=== PATIENT | female | born 1940 | race Hispanic/Latino ===

== ENCOUNTER 2020-03-18 14:03 | Emergency (ER) | payer OTHER, MEDICARE ==
[~2020-03-18 14:03] MED LIST: DULO30CA52 PO
[2020-03-18 14:37] LABS: BASOPHILS % (AUTO) 0.2 % (0.0-5.0); EOSINOPHILS % (AUTO) 0.4 % (0.0-8.0); HEMATOCRIT 36.8 % (36-48); LYMPHOCYTES % (AUTO) 14.3 % (21.0-51.0); MEAN CORPUSCULAR HEMOGLOBIN 30.8 pg (27.0-33.0); MEAN CORPUSCULAR VOLUME 90.6 fL (79-99); MONOCYTES % (AUTO) 7.8 % (3.0-13.0); NEUTROPHILS % (AUTO) 76.8 % (40.0-77.0); PLATELET COUNT (AUTO) 152 K/uL (130-400); RED BLOOD CELL COUNT(AUTO) 4.06 MIL/uL (4.00-5.50); RED CELL DISTRIBUTION WIDTH 13.5 % (11.0-15.5); WHITE BLOOD COUNT (AUTO) 5.7 K/uL (4.8-10.8)
[2020-03-18 14:51] LABS: ALBUMIN 3.5 g/dL (3.5-5.0); BILIRUBIN,TOTAL 0.4 mg/dL (0.2-1.0)
== END 2020-03-18 15:36 | disposition home or self-care (01) ==
LOC: EDH 14:03
DX: U07.1 COVID-19 (principal); Z98.890 Other specified postprocedural states
CPT/HCPCS: 36415; 71045; 80053; 85025; 87040 ×2; 99284; U0003

== ENCOUNTER 2020-03-23 14:20 | Inpatient (IN) | payer OTHER, MEDICARE ==
[~2020-03-23] VITALS: Ht 160 cm; Wt 72.5 kg
[2020-03-23 15:49] LABS: APPEARANCE,URINE Cloudy (CLEAR); BILIRUBIN,URINE Small (NEGATIVE); COLOR,URINE Dark Yellow (YELLOW); GLUCOSE, URINE (UA) Negative (NEGATIVE); KETONES,URINE Trace mg/dL (NEGATIVE); LEUKOCYTE ESTERASE ,URINE Small (NEGATIVE); NITRATE,URINE Negative (NEGATIVE); OCCULT BLOOD,URINE Negative (NEGATIVE); PH,URINE 5.5 (5.0-8.0); PROTEIN,URINE POS 1+ mg/dL (NEGATIVE)
[2020-03-23 16:01] LABS: BASOPHILS % (AUTO) 0.2 % (0.0-5.0); EOSINOPHILS % (AUTO) 0.1 % (0.0-8.0); HEMATOCRIT 36.7 % (36-48); LYMPHOCYTES % (AUTO) 12.1 % (21.0-51.0); MEAN CORPUSCULAR HEMOGLOBIN 30.6 pg (27.0-33.0); MEAN CORPUSCULAR HGB CONC 34.6 g/dL (32.0-36.0); MEAN CORPUSCULAR VOLUME 88.4 fL (79-99); MONOCYTES % (AUTO) 6.2 % (3.0-13.0); NEUTROPHILS % (AUTO) 80.3 % (40.0-77.0); PLATELET COUNT (AUTO) 150 K/uL (130-400); RED BLOOD CELL COUNT(AUTO) 4.15 MIL/uL (4.00-5.50); RED CELL DISTRIBUTION WIDTH 13.6 % (11.0-15.5); WHITE BLOOD COUNT (AUTO) 9.1 K/uL (4.8-10.8)
[2020-03-23 16:08] LABS: CREATININE 1.1 mg/dL (0.5-1.5); POTASSIUM 3.4 mmol/L (3.5-5.1)
[2020-03-23] MEDS ORDERED: CEFTRIAXONE SODIUM 1 GM ONE (16:10)
[2020-03-23 16:11] LABS: INR 1.08 (0.85-1.15); PARTIAL THROMBOPLASTIN TIME 30.7 SEC (26.3-35.5); PROTHROMBIN TIME 11.6 SEC (9.6-11.6)
[2020-03-23 16:13] LABS: ALBUMIN 3.1 g/dL (3.5-5.0); BILIRUBIN,TOTAL 0.5 mg/dL (0.2-1.0); TOTAL PROTEIN, SERUM 8.1 g/dL (6.0-8.3)
[2020-03-23 16:32] LABS: RBC,URINE 0-1 /HPF (0-1)
[2020-03-23 16:33] LABS: BACTERIA,URINE Few /HPF (None Seen); MUCUS,URINE Rare LPF (None Seen); SQUAMOUS EPITHELIAL CELL,UR Few /HPF (0-2); TRANSITIONAL EPI CELLS,URINE Few /HPF (None Seen)
[2020-03-23] MEDS ORDERED: ERGOCALCIFEROL (VITAMIN D2) 50,000 UNIT CAPSULE PO ONE (19:00)
[2020-03-23] MEDS ORDERED: POTASSIUM CHLORIDE 10% ELIXIR 20 MEQ/15 ML UDCUP PO PRN (19:00)
[2020-03-23] MEDS ORDERED: HYDRALAZINE HCL 20 MG/ML VIAL IV PRN (19:00)
[2020-03-23] MEDS ORDERED: FUROSEMIDE 10 MG/ML 2ML VIAL IV SCH (19:00)
[2020-03-23] MEDS ORDERED: ACETAMINOPHEN 325 MG TAB PO PRN ×2 (19:00)
[2020-03-23] MEDS ORDERED: DOXYCYCLINE 100MG+NS 250ML 250 ML IV SCH (19:00)
[2020-03-23] MEDS ORDERED: ACETAMINOPHEN-CODEINE 300/30MG TAB PO PRN ×2 (19:00)
[2020-03-23] MEDS ORDERED: LIDOCAINE HCL-MPF 1% 2ML VIAL IV PRN (19:00)
[2020-03-23] MEDS ORDERED: ONDANSETRON HCL 4 MG/2 ML VIAL IV PRN (19:00)
[2020-03-23] MEDS ORDERED: POTASSIUM CHLORIDE 20MEQ/100ML 100 ML IV PRN (19:00)
[2020-03-23] MEDS ORDERED: IOHEXOL 350 MG/ML 100ML INFUS..BTL IV ONE (19:36)
[2020-03-23] MEDS ORDERED: ENOXAPARIN SODIUM 40 MG/0.4 ML SYRINGE SQ SCH ×2 (21:00)
[2020-03-23] MEDS ORDERED: ENOXAPARIN SODIUM 40 MG/0.4 ML SYRINGE SQ ONE (21:22)
[2020-03-23] MEDS ORDERED: FAMOTIDINE 20MG TAB 20 MG TAB ONE (21:22)
[2020-03-23] MEDS ORDERED: METHYLPREDNISOLONE SOD SUCC 40MG/ML 1ML ONE (21:23)
[2020-03-23] MEDS ORDERED: BENZONATATE 100 MG CAPSULE PO ONE (21:44)
[2020-03-23] MEDS ORDERED: FUROSEMIDE 10 MG/ML 2ML VIAL ONE (21:44)
[2020-03-23] MEDS ORDERED: ERGOCALCIFEROL (VITAMIN D2) 50,000 UNIT CAPSULE ONE (21:45)
[2020-03-23] MEDS ORDERED: DOXYCYCLINE 100MG+NS 250ML 250 ML IV ONE (21:46)
[2020-03-24] MEDS: IPRATROPIUM/ALBUTEROL SULFATE 3 ML SOLUTION IH SCH
[2020-03-24] MEDS ORDERED: ENOXAPARIN SODIUM 40 MG/0.4 ML SYRINGE SQ SCH (09:00)
[2020-03-24] MEDS ORDERED: METHYLPREDNISOLONE SOD SUCC 40MG/ML 1ML ONE (09:15)
[2020-03-24] MEDS ORDERED: FAMOTIDINE 20MG TAB 20 MG TAB ONE (09:16)
[2020-03-24] MEDS ORDERED: ASCORBIC ACID 500 MG TAB ONE (09:16)
[2020-03-24] MEDS ORDERED: DOXYCYCLINE HYCLATE 100 MG TABLET PO ONE (09:16)
[2020-03-24] MEDS ORDERED: ENOXAPARIN SODIUM 40 MG/0.4 ML SYRINGE SQ ONE (09:17)
[2020-03-24] MEDS ORDERED: BENZONATATE 100 MG CAPSULE PO ONE ×2 (09:17→13:05)
[2020-03-24] MEDS ORDERED: ZINC SULFATE 220 CAPSULE ONE ×2 (09:22→13:05)
--- NOTE | 2020-03-24 14:20 | NUR ---
DR AGUIRRE BAND TUMBLER NOTIFY ABOUT CONSULT. HE WILL EVALUATE PT.
--- NOTE | 2020-03-24 16:59 | NUR ---
cm note spoke to pt's son jad and daughter in law bushra . pt lives alone, independent with ambulation and has provider 2hrs daily. son is provider. states uses cpap at hs, dc plan is back home at time of dc. . states if pt is still weak at dc. pt will be going to his home at time of dc. until she is stable. states no dc needs. Addendum: 03/24/20 at 1703 by CLEMENT YANES CM Amended: Links added.
[2020-03-25] MEDS ORDERED: MORPHINE SULFATE 2 MG/ML 1ML SYG IV PRN
[2020-03-25] MEDS ORDERED: DEXTROSE 50%-WATER 50 ML DISP.SYRIN IV PRN
[2020-03-25] MEDS ORDERED: POTASSIUM CHLORIDE 20 MEQ ERTAB PO PRN
[2020-03-25] MEDS ORDERED: NITROGLYCERIN 0.4 MG SL TAB SL PRN
[2020-03-25] MEDS ORDERED: DiphenhydrAMINE HCL 50 MG/ML VIAL IV PRN
[2020-03-25] MEDS ORDERED: POTASSIUM CHLORIDE 20MEQ/100ML 100 ML IV PRN
[2020-03-25] MEDS ORDERED: GUAIFENESIN-DM 200/20 MG 10 ML PO PRN
[2020-03-25] MEDS ORDERED: DIPHENHYDRAMINE HCL 25 MG CAPSULE PO PRN
[2020-03-25] MEDS ORDERED: MAGNESIUM 2GM PREMIX 50ML 50 ML IV PRN
[2020-03-25] MEDS ORDERED: MAG HYDROX/AL HYDROX/SIMETH ES 30 ML SUSP UDCUP PO PRN
[2020-03-25] MEDS ORDERED: GLUCAGON 1MG KIT 1 MG ML IM PRN
[2020-03-25] MEDS ORDERED: POTASSIUM CHLORIDE 10% ELIXIR 20 MEQ/15 ML UDCUP PO PRN
[2020-03-25] MEDS ORDERED: LACTULOSE 20 GM/30 ML UDCUP PO PRN
[2020-03-25] MEDS ORDERED: LIDOCAINE HCL-MPF 1% 2ML VIAL IV PRN
[2020-03-25] MEDS ORDERED: ACETAMINOPHEN 325 MG TAB PO PRN
[2020-03-25] MEDS ORDERED: ZOLPIDEM TARTRATE 5 MG TAB PO PRN
[2020-03-25] MEDS ORDERED: METHYLPREDNISOLONE SOD SUCC 40MG/ML 1ML ONE ×3 (00:44→21:01)
[2020-03-25] MEDS ORDERED: DOXYCYCLINE HYCLATE 100 MG TABLET PO ONE ×3 (00:44→21:02)
[2020-03-25] MEDS ORDERED: BENZONATATE 100 MG CAPSULE PO ONE ×4 (00:45→21:02)
[2020-03-25] MEDS ORDERED: ENOXAPARIN SODIUM 40 MG/0.4 ML SYRINGE SQ ONE ×2 (00:45→09:58)
[2020-03-25 07:24] LABS: HEMOGLOBIN A1C 5.9 % (4.0-6.0)
[2020-03-25 07:42] LABS: ABG BASE EXCESS 1.9 mmol/L (-2.0-3.0); ABG OXYGEN SATURATION 93.7 % (95.0-99.0); ABG PCO2 35 mmHg (32-45)
[2020-03-25 08:12] LABS: ALANINE AMINOTRANSFERASE 24 U/L (12-78); ALBUMIN 2.7 g/dL (3.5-5.0); ASPARTATE AMINOTRANSFERASE 34 U/L (10-37); BILIRUBIN,TOTAL 0.4 mg/dL (0.2-1.0); CARBON DIOXIDE 27 mmol/L (21-32); CHLORIDE 103 mmol/L (101-111); CREATININE 0.7 mg/dL (0.5-1.5); GLOMERULAR FILTR. RATE CALC 86 mL/min (>60); GLUCOSE,RANDOM 165 mg/dL (70-105); LACTATE DEHYDROGENASE 233 U/L (81-234); LIPASE 163 U/L (114-286); POTASSIUM 3.5 mmol/L (3.5-5.1); SODIUM SERUM 138 mmol/L (136-145); THYROID STIMULATING HORMONE 0.17 uIU/mL (0.36-3.74); TOTAL PROTEIN, SERUM 7.1 g/dL (6.0-8.3); UREA NITROGEN, BLOOD 22 mg/dL (7-18)
[2020-03-25] MEDS ORDERED: FAMOTIDINE 20MG TAB 20 MG TAB ONE (09:57)
[2020-03-25] MEDS ORDERED: ASCORBIC ACID 500 MG TAB ONE (09:57)
[2020-03-25] MEDS ORDERED: ZINC SULFATE 220 CAPSULE ONE (09:58)
[2020-03-25] MEDS: ZINC SULFATE 220 CAPSULE PO SCH (12:00)
[2020-03-25] MEDS ORDERED: PHARMACY COMMUNICATION MISC SCH (16:00)
[2020-03-25] MEDS ORDERED: FUROSEMIDE 10 MG/ML 2ML VIAL ONE (17:02)
[2020-03-25] MEDS ORDERED: DiphenhydrAMINE HCL 25 MG/10 ML ELIXIR UDCUP ONE (21:52)
[2020-03-26] MEDS: FUROSEMIDE 10 MG/ML 2ML VIAL IV SCH ×2 (04:00→17:17)
[2020-03-26] MEDS ORDERED: FUROSEMIDE 10 MG/ML 2ML VIAL ONE (05:31)
[2020-03-26] MEDS: IPRATROPIUM/ALBUTEROL SULFATE 3 ML SOLUTION IH SCH (06:00)
[2020-03-26 06:59] LABS: HEMATOCRIT 34.7 % (36-48); MEAN CORPUSCULAR HEMOGLOBIN 30.2 pg (27.0-33.0); MEAN CORPUSCULAR VOLUME 88.7 fL (79-99); PLATELET COUNT (AUTO) 174 K/uL (130-400); RED BLOOD CELL COUNT(AUTO) 3.91 MIL/uL (4.00-5.50); RED CELL DISTRIBUTION WIDTH 13.3 % (11.0-15.5); WHITE BLOOD COUNT (AUTO) 14.8 K/uL (4.8-10.8)
[2020-03-26 07:18] LABS: BILIRUBIN,TOTAL 0.5 mg/dL (0.2-1.0); CRP QUANTITATIVE 25.6 mg/L (0.00-9.0); MAGNESIUM 2.5 mg/dL (1.80-2.40); TOTAL PROTEIN, SERUM 7.6 g/dL (6.0-8.3)
[2020-03-26] MEDS: INSULIN HUMULIN R 100 UNIT/ML 3ML SQ SCH ×4 (07:30→20:20)
[2020-03-26] MEDS: PHARMACY COMMUNICATION MISC SCH ×3 (07:45→19:45)
[2020-03-26] MEDS ORDERED: METHYLPREDNISOLONE SOD SUCC 40MG/ML 1ML ONE (07:56)
[2020-03-26] MEDS ORDERED: DOXYCYCLINE HYCLATE 100 MG TABLET PO ONE (07:57)
[2020-03-26] MEDS ORDERED: POTASSIUM CHLORIDE 20 MEQ ERTAB PO ONE (07:57)
[2020-03-26] MEDS ORDERED: ASCORBIC ACID 500 MG TAB ONE (07:57)
[2020-03-26] MEDS ORDERED: FAMOTIDINE 20MG TAB 20 MG TAB ONE (07:57)
[2020-03-26] MEDS ORDERED: BENZONATATE 100 MG CAPSULE PO ONE (07:58)
[2020-03-26] MEDS ORDERED: ENOXAPARIN SODIUM 40 MG/0.4 ML SYRINGE SQ ONE (07:58)
[2020-03-26 08:35] LABS: LYMPHOCYTES % (MANUAL) 5 % (22-44); MAN.DIFF COMMENT-IMPRESSION MANUAL DIFFERENTIAL; PLATELET MORPHOLOGY COMMENT ADEQUATE; SEGMENTED NEUTROPHILS % 95 % (40-70)
[2020-03-26] MEDS: ENOXAPARIN SODIUM 40 MG/0.4 ML SYRINGE SQ SCH ×2 (09:00→20:22)
[2020-03-26] MEDS: FAMOTIDINE 20MG TAB 20 MG TAB PO SCH (09:00)
[2020-03-26] MEDS: BENZONATATE 100 MG CAPSULE PO SCH ×3 (09:00→20:22)
[2020-03-26] MEDS: METHYLPREDNISOLONE SOD SUCC 40MG/ML 1ML IVP SCH ×2 (09:00→20:21)
[2020-03-26] MEDS: ASCORBIC ACID 500 MG TAB PO SCH (09:00)
[2020-03-26] MEDS: DOXYCYCLINE HYCLATE 100 MG TABLET PO SCH ×2 (09:00→20:21)
[2020-03-26 09:36] VITALS: BP 119/48
[2020-03-26 12:00] VITALS: BP 115/55
[2020-03-26] MEDS: ZINC SULFATE 220 CAPSULE PO SCH (13:57)
[2020-03-26] MEDS: POTASSIUM CHLORIDE 20 MEQ ERTAB PO PRN ×3 (13:58→17:40)
[2020-03-26 17:13] VITALS: BP 147/69
[2020-03-26 19:30] VITALS: BP 99/61
[2020-03-26] MEDS ORDERED: ALBUTEROL INHALER 90MCG/INH IH SCH (20:30)
[2020-03-26] MEDS: ALBUTEROL INHALER 90MCG/INH IH SCH (21:24)
[2020-03-26] MEDS: REMDESIVIR (EUA) 520 200 MG in SODIUM CHLORIDE 0.9% 250 ML IV ONE ×2 (21:25→21:57)
--- NOTE | 2020-03-26 21:57 | NUR ---
REFUSED Pt refused Remdesevir,explained to her risks,benefits but she said she's afraid and does not want to take the risk,Pharamkayla and Monae Mccoy Physiotherapy Assistant notified.Pt signed refusal form.
--- NOTE | 2020-03-26 23:12 | NUR ---
ANXIETY Pt is anxious,she's scared about the medication Remdesevir.She also voiced that her son is in the emergency room.
[2020-03-26 23:47] VITALS: BP 108/49
[2020-03-27] MEDS: PHARMACY COMMUNICATION MISC SCH ×2 (01:45→07:45)
--- NOTE | 2020-03-27 02:00 | NUR ---
CALM Pt calm,resting in bed,eyes closed.Respirations even and unlabored.
[2020-03-27] MEDS: ALBUTEROL INHALER 90MCG/INH IH SCH ×4 (02:58→20:50)
[2020-03-27 04:00] VITALS: BP 97/58
[2020-03-27] MEDS: FUROSEMIDE 10 MG/ML 2ML VIAL IV SCH ×2 (04:28→17:30)
[2020-03-27] MEDS: INSULIN HUMULIN R 100 UNIT/ML 3ML SQ SCH ×4 (06:05→20:36)
[2020-03-27 07:45] LABS: BASOPHILS % (AUTO) 0.2 % (0.0-5.0); HEMATOCRIT 35.7 % (36-48); LYMPHOCYTES % (AUTO) 5.7 % (21.0-51.0); MEAN CORPUSCULAR HGB CONC 33.6 g/dL (32.0-36.0); MEAN CORPUSCULAR VOLUME 89.3 fL (79-99); MONOCYTES % (AUTO) 4.2 % (3.0-13.0); NEUTROPHILS % (AUTO) 88.3 % (40.0-77.0); PLATELET COUNT (AUTO) 250 K/uL (130-400); RED CELL DISTRIBUTION WIDTH 13.2 % (11.0-15.5); WHITE BLOOD COUNT (AUTO) 13.6 K/uL (4.8-10.8)
[2020-03-27 08:00] LABS: CRP QUANTITATIVE 20.1 mg/L (0.00-9.0)
[2020-03-27 09:07] VITALS: BP 109/74
[2020-03-27] MEDS: METHYLPREDNISOLONE SOD SUCC 40MG/ML 1ML IVP SCH ×2 (10:20→20:33)
[2020-03-27] MEDS: ASCORBIC ACID 500 MG TAB PO SCH (10:20)
[2020-03-27] MEDS: FAMOTIDINE 20MG TAB 20 MG TAB PO SCH (10:20)
[2020-03-27] MEDS: BENZONATATE 100 MG CAPSULE PO SCH ×3 (10:20→20:32)
[2020-03-27] MEDS: DOXYCYCLINE HYCLATE 100 MG TABLET PO SCH ×2 (10:20→20:33)
[2020-03-27] MEDS: ENOXAPARIN SODIUM 40 MG/0.4 ML SYRINGE SQ SCH ×2 (10:22→20:34)
[2020-03-27 12:02] VITALS: BP 115/55
[2020-03-27] MEDS ORDERED: COMPOUND IV REFRIGERATED 1 EACH IVSOLN MISC PRN (12:15)
[2020-03-27] MEDS: ZINC SULFATE 220 CAPSULE PO SCH (13:39)
--- NOTE | 2020-03-27 15:00 | NUR ---
PT SHOWERED, TOLERATED WELL. NO COMPLAINTS OF PAIN OR SOB. WILL CONTINUE TO MONITOR.
[2020-03-27 16:39] VITALS: BP 118/61
[2020-03-27 20:00] VITALS: BP 106/68
[2020-03-27] MEDS ORDERED: REMDESIVIR (EUA) 520 100 MG in SODIUM CHLORIDE 0.9% 250 ML IV SCH (20:00)
[2020-03-28] VITALS: BP 95/51
[2020-03-28] MEDS: ALBUTEROL INHALER 90MCG/INH IH SCH ×4 (02:53→20:29)
[2020-03-28] MEDS: FUROSEMIDE 10 MG/ML 2ML VIAL IV SCH ×2 (04:00→17:50)
[2020-03-28] MEDS: INSULIN HUMULIN R 100 UNIT/ML 3ML SQ SCH ×4 (05:55→20:10)
[2020-03-28 06:41] LABS: HEMATOCRIT 37.2 % (36-48); MEAN CORPUSCULAR HEMOGLOBIN 30.2 pg (27.0-33.0); MEAN CORPUSCULAR HGB CONC 33.3 g/dL (32.0-36.0); MEAN CORPUSCULAR VOLUME 90.5 fL (79-99); PLATELET COUNT (AUTO) 269 K/uL (130-400); RED BLOOD CELL COUNT(AUTO) 4.11 MIL/uL (4.00-5.50); RED CELL DISTRIBUTION WIDTH 13.1 % (11.0-15.5); WHITE BLOOD COUNT (AUTO) 13.3 K/uL (4.8-10.8)
[2020-03-28 07:40] LABS: ALBUMIN 3.1 g/dL (3.5-5.0); BILIRUBIN,TOTAL 0.5 mg/dL (0.2-1.0); CREATININE 1.2 mg/dL (0.5-1.5); MAGNESIUM 2.6 mg/dL (1.80-2.40); POTASSIUM 3.3 mmol/L (3.5-5.1); TOTAL PROTEIN, SERUM 7.8 g/dL (6.0-8.3)
[2020-03-28 08:16] LABS: LYMPHOCYTES % (MANUAL) 8 % (22-44); MAN.DIFF COMMENT-IMPRESSION MANUAL DIFFERENTIAL; MONOCYTES % (MANUAL) 5 % (2-9); PLATELET MORPHOLOGY COMMENT ADEQUATE; SEGMENTED NEUTROPHILS % 87 % (40-70)
[2020-03-28 08:36] VITALS: BP 110/62
[2020-03-28] MEDS: BENZONATATE 100 MG CAPSULE PO SCH ×3 (10:14→20:09)
[2020-03-28] MEDS: ASCORBIC ACID 500 MG TAB PO SCH (10:14)
[2020-03-28] MEDS: DOXYCYCLINE HYCLATE 100 MG TABLET PO SCH ×2 (10:14→20:09)
[2020-03-28] MEDS: FAMOTIDINE 20MG TAB 20 MG TAB PO SCH (10:15)
[2020-03-28] MEDS: METHYLPREDNISOLONE SOD SUCC 40MG/ML 1ML IVP SCH ×2 (10:15→20:09)
[2020-03-28] MEDS: ENOXAPARIN SODIUM 40 MG/0.4 ML SYRINGE SQ SCH ×2 (10:16→20:09)
[2020-03-28 11:17] VITALS: BP 115/64
[2020-03-28] MEDS: ZINC SULFATE 220 CAPSULE PO SCH (13:55)
--- NOTE | 2020-03-28 16:30 | NUR ---
ORDERS TO WEAN PT OFF O2. RT NOTIFIED, SPOKE WITH PEDRO LUIS. PT ON 4L NASAL CANULA SAT 94%. NO COMPLAINTS OF SOB. PT STATES FEELING GOOD. WILL CONTINUE TO MONITOR.
[2020-03-28 17:44] VITALS: BP 120/63
[2020-03-28 20:25] VITALS: BP 118/73
[2020-03-29 00:02] VITALS: BP 108/58
[2020-03-29] MEDS: FUROSEMIDE 10 MG/ML 2ML VIAL IV SCH ×2 (04:00→18:04)
[2020-03-29] MEDS: ALBUTEROL INHALER 90MCG/INH IH SCH ×3 (04:21→18:04)
[2020-03-29 04:30] VITALS: BP 110/67
[2020-03-29 04:51] LABS: ABG BASE EXCESS 5.5 mmol/L (-2.0-3.0); ABG HCO3 29.1 mmol/L (21.0-28.0); ABG OXYGEN SATURATION 93.2 % (95.0-99.0); ABG PCO2 39 mmHg (32-45)
[2020-03-29] MEDS: INSULIN HUMULIN R 100 UNIT/ML 3ML SQ SCH ×3 (06:06→18:05)
[2020-03-29 06:59] LABS: BASOPHILS % (AUTO) 0.4 % (0.0-5.0); HEMATOCRIT 39.3 % (36-48); LYMPHOCYTES % (AUTO) 7.4 % (21.0-51.0); MEAN CORPUSCULAR HEMOGLOBIN 30.2 pg (27.0-33.0); MEAN CORPUSCULAR HGB CONC 33.3 g/dL (32.0-36.0); MEAN CORPUSCULAR VOLUME 90.6 fL (79-99); NEUTROPHILS % (AUTO) 81.8 % (40.0-77.0); PLATELET COUNT (AUTO) 315 K/uL (130-400); RED BLOOD CELL COUNT(AUTO) 4.34 MIL/uL (4.00-5.50); WHITE BLOOD COUNT (AUTO) 13.3 K/uL (4.8-10.8)
[2020-03-29 08:37] VITALS: BP 99/61
[2020-03-29] MEDS: FAMOTIDINE 20MG TAB 20 MG TAB PO SCH (09:38)
[2020-03-29] MEDS: BENZONATATE 100 MG CAPSULE PO SCH ×2 (09:38→18:03)
[2020-03-29] MEDS: ASCORBIC ACID 500 MG TAB PO SCH (09:38)
[2020-03-29] MEDS: METHYLPREDNISOLONE SOD SUCC 40MG/ML 1ML IVP SCH (09:38)
[2020-03-29] MEDS: DOXYCYCLINE HYCLATE 100 MG TABLET PO SCH (09:38)
[2020-03-29] MEDS: ENOXAPARIN SODIUM 40 MG/0.4 ML SYRINGE SQ SCH (09:45)
[2020-03-29 11:20] VITALS: BP 113/65
[2020-03-29 17:00] VITALS: BP 119/68
--- NOTE | 2020-03-29 17:00 | NUR ---
CM note spoke to pt choice letter obtained for home o2. and updated on md orders for dc when O2 arranged, explained process of oxygen tank and concentrator loaner from the hospital. and also informed of referral made to [facility] for polo yarbrough. pt verbalizes understanding. also spoke on phone to son, and in agreement. Brandon Ruiz. updated warehouse operator guille to provide concentrator for pt, and also called RT to provide portable o2 tank and provide instructions. primary nurse Fabian aware of above.
[2020-03-29] MEDS: ZINC SULFATE 220 CAPSULE PO SCH (18:03)
--- NOTE | 2020-03-29 18:41 | NUR ---
PT PENDING O2 CONCENTRATOR HOUSE AWARE RT TO TEACH PATIENT PRIOR TO D/C HOME AND TO EDUCATE FAMILY AT ELEVATOR PRIOR TO D/C HOME.
--- NOTE | 2020-03-29 21:08 | NUR ---
RT IN TO TEACH PATIENT AND SON HOW TO USE O2 CONCENTRATOR AT THIS TIME. PATIENT TO BE D/C'D AFTER INSTRUCTION.
== END 2020-03-29 21:15 | disposition home or self-care (01) | DRG 177 ==
LOC: EDH 14:20 → EDHIP 18:55 → 3AH 03-26 08:50
PROVIDERS: ADMIT Internal Medicine; ATTEND Internal Medicine
PROC: 30233K1 Transfusion of Nonautologous Frozen Plasma into Peripheral Vein, Percutaneous Approach (ICD-10-PCS; principal; 2020-03-23)
DX: U07.1 COVID-19 (principal); J96.01 Acute respiratory failure with hypoxia; J44.1 Chronic obstructive pulmonary disease with (acute) exacerbation; G47.33 Obstructive sleep apnea (adult) (pediatric); F32.9 Major depressive disorder, single episode, unspecified; Z90.49 Acquired absence of other specified parts of digestive tract
CPT/HCPCS: 36415; 36600; 71045; 71275; 80053; 81001; 82550; 82728; 82803; 82948; 83036; 83615; 83690; 83735; 83880; 84132; 84145; 84439; 84443; 84480; 84484; 85025; 85378; 85610; 85651; 85730; 86140; 86850; 86900; 86901; 86927; 93005; 94664; 94760; G0378; J0696; J1650; J1815; J1940; J2920; J3490; J7050; Q9967

== ENCOUNTER → 2020-09-11 | Outpatient (CLI) | payer MEDICARE | END | disposition home or self-care (01) | LOC: RAH 11:08 | PROVIDERS: ATTEND Family Medicine | DX: R91.8 Other nonspecific abnormal finding of lung field (principal); J84.10 Pulmonary fibrosis, unspecified; M51.35 Other intervertebral disc degeneration, thoracolumbar region; Z86.19 Personal history of other infectious and parasitic diseases | CPT/HCPCS: 71046 ==

== ENCOUNTER → 2022-05-20 | Outpatient (CLI) | payer MEDICARE ==
[2022-05-20 13:22] LABS: CREATINE KINASE, TOTAL 67 U/L (21-232); LACTATE DEHYDROGENASE 179 U/L (81-234)
[2022-05-20 13:25] LABS: CRP QUANTITATIVE < 2.00 mg/L (0.00-9.0)
[2022-05-25 06:10] LABS: ALLERGEN D.FARINAE(MITE) <0.10 kU/L (Class 0)
== END | disposition home or self-care (01) ==
LOC: LAB 11:02
PROVIDERS: ATTEND Internal Medicine Critical Care Medicine
DX: J84.10 Pulmonary fibrosis, unspecified (principal); J30.9 Allergic rhinitis, unspecified; R06.02 Shortness of breath; R09.02 Hypoxemia; G47.33 Obstructive sleep apnea (adult) (pediatric); G47.61 Periodic limb movement disorder; G47.30 Sleep apnea, unspecified; Z86.16 Personal history of COVID-19; Z86.19 Personal history of other infectious and parasitic diseases
CPT/HCPCS: 36415; 82085; 82164; 82550; 82785; 83516; 83615; 85651; 86003; 86005; 86038; 86140; 86147; 86200; 86215; 86235; 86255; 86431

== ENCOUNTER → 2024-10-03 | Outpatient (CLI) | payer MEDICARE ==
--- NOTE | 2024-10-03 14:50 | HMCIMG ---
CT CHEST HIGH RESOLUTION (WO) REASON: Chronic obstructive pulmonary disease, unspecified COMPARISON: 03/23/2020 TECHNIQUE: Routine CT chest images were performed. Additional high-resolution 1 mm sections were obtained at intervals throughout both lungs in inspiration and expiration. FINDINGS: There are diffusely increased interstitial markings in both lungs consistent with pulmonary fibrosis. These appear moderate in degree. There is some minimal peripheral honeycombing. There are no large blebs or bulla and there is no bronchiectasis. There are no acute appearing focal infiltrates. There are no focal masses. Heart size is normal with no vascular congestion. There is no hilar or mediastinal lymphadenopathy. Chest wall structures appear normal as do visualized upper abdominal structures. IMPRESSION: 1. Diffuse moderate degree of pulmonary fibrosis. 2. No superimposed process identified.
== END | disposition home or self-care (01) ==
LOC: RAH 13:40
PROVIDERS: ATTEND Internal Medicine Critical Care Medicine
DX: J84.10 Pulmonary fibrosis, unspecified (principal); J44.9 Chronic obstructive pulmonary disease, unspecified; J84.9 Interstitial pulmonary disease, unspecified
CPT/HCPCS: 71250

== ENCOUNTER 2024-11-14 19:59 | Inpatient (IN) | payer MEDICARE ==
[~2024-11-14] VITALS: Ht 154.9 cm; Wt 74.4 kg
--- NOTE | 2024-11-14 20:07 | ERN ---
ED Note History of Present Illness Stated Complaint: SOB Chief Complaint: Shortness of Breath Time Seen by MD: 20:02 Dictation: This is an 83-year-old female who presented to the emergency room with complaints of shortness of breath. She started experiencing worsening shortness of breath since Wednesday. She also reports cough and chest congestion and she is expectorating mucoid sputum but denied any hemoptysis. She denied any fevers chills or rigors however she did have a low-grade temp of 99 in the ER she was also noted to be hypoxic at 91% on room air. Stated that she has been sleeping all day and all night and has been extremely tired. She normally wears a CPAP machine for sleep apnea and she could not wear for the past few days. She indicated that the lethargy and somnolence has been there even before. Temperature 99 pulse 75 respirations 20 blood pressure 150/73 with a pulse oximetry of 91% on room air Past history significant for COPD details on PFTs unknown, obstructive sleep apnea syndrome, history of COVID-19 in March 25, 2020-with a extensive respiratory failure and lung injury Allergies: Coded Allergies: No Known Drug Allergies (Unverified Allergy, Unknown, 01/02/16) Home Meds Reported Medications Duloxetine HCl (Duloxetine HCl) 30 Mg Capsule.dr, 30 MG PO HS, CAP 01/02/16 Past Medical History Additional Past Medical Hx: COVID in 2019 with respiratory failure Family History: Negative Social History: Negative History: Not Applicable RN Note Reviewed/Agreed w/PFSH: Yes Review of System Dictation Constitutional: Negative for fever,chills, and weight loss Eyes: Negative for injury, pain,redness, and discharge ENT: Negative for injury,pain or swelling Cardiovascular: Negative for chest pain, palpitations, and edema Respiratory: Positive for shortness of breath, cough, and wheezing, Abdomen/GI: Negative for abdominal pain, nausea, vomiting, diarrhea, and constipation Back: Negative for injury and pain : Negative for injury, bleeding and discharge MS/Extremity: Negative for injury and deformity Skin: Negative for rash, and discoloration Neuro: Negative for headache, weakness, numbness, tingling, and seizure Psych: Negative for suicide ideation, homicidal ideation, and hallucinations Initial Vital Sign VS Vital Signs Date Time Temp Pulse Resp B/P (MAP) Pulse Ox O2 Delivery O2 Flow Rate FiO2 3/11/25 20:07 99.0 75 20 150/73 92 Room Air 0 11/14/24 20:27 21 Physical Exam Dictation General: awake, alert, NAD Head/Face: Normocephalic, atraumatic Eyes: PERRL, EOMI, vision at baseline ENT: oral cavity clear, TMs clear, no signs of infection Neck: Trachea midline, supple, no nuchal rigidity Cardiovascular: RRR, normal S1/S2, No MRGs, no JVD Respiratory: Bilateral coarse rhonchi and crackles at the bases left base posteriorly had dullness to percussion Abdomen: Soft, non-tender, non-distended, normal bowel sounds, no guarding or rebound. Skin: Warm, dry, normal turgor, no rash MS/Extremity: Pulses equal, no cyanosis, neurovascular intact, FROM Neuro: COAx4, GCS 15, strength 5/5, CN 2-12 intact, normal cerebellar exam, normal gait, Psych: Normal behavior, mood, and affect normal Extremities-trace edema without any palpable cords, Homans sign is negative Results (Laboratory/Radiology) Laboratory/Radiology Laboratory Tests Test 11/14/24 20:24 11/14/24 21:35 11/14/24 21:41 White Blood Count 8.2 K/uL (4.8-10.8) Red Blood Count 3.94 MIL/uL (4.00-5.50) L Hemoglobin 11.9 g/dL (12.0-16.0) L Hematocrit 36.8 % (36-48) Mean Corpuscular Volume 93.4 fL (79-99) Mean Corpuscular Hemoglobin 30.2 pg (27.0-33.0) Mean Corpuscular Hemoglobin Concent 32.3 g/dL (32.0-36.0) Red Cell Distribution Width 13.2 % (11.0-15.5) Platelet Count 231 K/uL (130-400) Mean Platelet Volume 10.4 fL (7.5-10.5) Immature Granulocyte % (Auto) 0.5 % (0-1) Neutrophils (%) (Auto) 66.4 % (40.0-77.0) Lymphocytes (%) (Auto) 21.6 % (21.0-51.0) Monocytes (%) (Auto) 7.3 % (3.0-13.0) Eosinophils (%) (Auto) 3.6 % (0.0-8.0) Basophils (%) (Auto) 0.6 % (0.0-5.0) Neutrophils # (Auto) 5.5 K/uL (1.8-7.7) Lymphocytes # (Auto) 1.8 K/uL (1.0-4.8) Monocytes # (Auto) 0.6 K/uL (0.1-1.0) Eosinophils # (Auto) 0.30 K/uL (0.00-0.70) Basophils # (Auto) 0.05 K/uL (0.00-0.20) Absolute Immature Granulocyte (auto 0.04 K/uL (0-1) Nucleated Red Blood Cells 0.0 % (0.0-0.19) Sodium Level 142 mmol/L (136-145) Potassium Level 4.6 mmol/L (3.5-5.1) Chloride Level 104 mmol/L (101-111) Carbon Dioxide Level 31 mmol/L (21-32) Blood Urea Nitrogen 18 mg/dL (7-18) Creatinine 1.1 mg/dL (0.5-1.0) H Glomerular Filtration Rate Calc 50 mL/min (>90) Random Glucose 104 mg/dL (70-105) Total Calcium 8.9 mg/dL (8.5-10.1) Total Creatine Kinase 70 U/L (21-232) Troponin I High Sensitivity 7.2 ng/L (4-50) B-Type Natriuretic Peptide 139 pg/mL (0-100) H Thyroid Stimulating Hormone (TSH) 1.53 uIU/mL (0.36-3.74) # Blood Gas Specimen Type Arterial Arterial Blood pH 7.402 (7.350-7.450) Arterial Blood Partial Pressure CO2 38 mmHg (32-45) Arterial Blood Partial Pressure O2 63.0 mmHg (83.0-108.0) L Arterial Blood HCO3 23.1 mmol/L (21.0-28.0) Arterial Blood Oxygen Saturation 92.3 % (94.0-98.0) L Arterial Blood Base Excess -1.3 mmol/L (-2.0-3.0) Blood Gas Temperature 37.0 CELSIUS (35.5-37.0) Blood Gas Vent Mode ROOMAIR (ROOM AIR) FiO2 21.0 % Blood Gas Specimen Comment RB Lactic Acid Level 1.1 mmol/L (0.8-2.5) Labs Reviewed?: Yes EKG Comment: Twelve lead EKG done on 11/14/2024 at 8:08 p.m. showed a heart rate of 76, MD interval 150, QRS 93, QT/QTC 399/448 Impression normal sinus rhythm with nonspecific ST-T changes poor progression of R-wave overall somewhat of a low voltage. No acute ST elevations noted. Interpreted by ER MD Dr. Broussard X-RAY Comment: Interpreted by me Extensive bilateral fibrotic changes with subpleural as well as parenchymal with evidence of extensive infiltrate in the left lung base . Radiology report is pending at this time ED Course ED Course Orders Procedure Category Date Status Time Cbc With Differential LAB 11/14/24 Complete 20:03 B-Type Natriuretic LAB 11/14/24 Complete Peptide 20:03 Cardiac Panel LAB 11/14/24 Complete 20:03 Chest 1vw RAD 11/14/24 Resulted 20:03 12 Lead Ekg Tracing- EKG 11/14/24 Complete Technical 20:03 Basic Metabolic Panel LAB 11/14/24 Complete 20:03 Arterial Blood Gas RT 11/14/24 Transmitted 20:20 Thyroid Stimulating LAB 11/14/24 Complete Hormone 20:24 Blood Cult KEYA 11/14/24 In Process 21:11 Zosyn 3.375gm+Ns 50ml PHA 11/14/24 Complete (Zosyn 3.375gm+Ns 21:30 Vancomycin 750mg PHA 11/14/24 Complete (Vancomycin 750mg) 21:30 0.9% Nacl 250ml (Ns PHA 11/14/24 Complete 250ml) 21:30 Ipratropium/Albuterol PHA 11/14/24 Complete Neb (Duoneb) 21:30 Methylprednisolone PHA 11/14/24 Complete Succ 40mg (Solu-Medro 21:30 0.9%Nacl 1000ml (Ns PHA 11/14/24 In Process 1000ml) 21:30 Lactic Acid LAB 11/14/24 Complete 21:11 Arterial Blood Gas LAB 11/14/24 Complete 21:35 Edm Admit Bridge Order ADM 11/14/24 Transmitted 23:09 Admit Orders ADM 11/14/24 Transmitted 23:09 Acetylcysteine 20% PHA 11/15/24 In Process 4ml (Mucomyst 20% 4ml 00:00 Ipratropium/Albuterol PHA 11/15/24 In Process Neb (Duoneb) 00:00 Cpt Every ___ Hrs CPOE 11/14/24 Transmitted 23:12 Zosyn 3.375gm+Ns 50ml PHA 11/15/24 In Process (Zosyn 3.375gm+Ns 05:30 Vital Signs Every 4 CPOE 11/14/24 Transmitted Hours 23:15 Daily Weights CPOE 11/14/24 Transmitted 23:15 I&O Q Shift CPOE 11/14/24 Transmitted 23:15 Activity: Bed Rest CPOE 11/14/24 Transmitted 23:15 Heart Healthy Diet DIET 11/15/24 Transmitted Breakfast Albuterol 0.083% PHA 11/14/24 In Process 2.5mg/3ml (Proventil 23:30 Cbc With Differential LAB 11/15/24 Verified 04:00 Basic Metabolic Panel LAB 11/15/24 Verified 04:00 Magnesium LAB 11/15/24 Verified 04:00 Phosphorus LAB 11/15/24 Verified 04:00 Procalcitonin LAB 11/15/24 Verified 04:00 Ascorbic Acid 500mg PHA 11/15/24 In Process Tab (Vitamin C 500mg 09:00 Polyethylene Glycol PHA 11/15/24 In Process 3350 (Miralax 3350 1 09:00 Famotidine 20mg Tab PHA 11/15/24 In Process (Pepcid 20mg Tab) 00:00 Acetaminophen 325 Tab PHA 11/14/24 In Process (Tylenol 325mg Tab 23:30 Acetaminophen 650mg PHA 11/14/24 In Process Supp (Tylenol 650mg 23:30 Hydrocodone/Apap PHA 11/14/24 In Process 5/325 (Arco 5/325mg) 23:30 Ondansetron 4mg Inj PHA 11/14/24 In Process (Zofran 4mg Inj) 23:30 Hydralazine 20mg Inj PHA 11/14/24 In Process (Apresoline 20mg In 23:30 Labetalol 20mg Syg PHA 11/14/24 In Process (Trandate 20mg Syg) 23:30 Apply Scds CPOE 11/14/24 Transmitted 23:15 Elevate Hob At 30 CPOE 11/14/24 Transmitted Degrees 23:15 Admit Orders ADM 11/14/24 Transmitted 23:15 Telemetry Monitoring CPOE 11/14/24 Transmitted 23:15 Initiate HOLLY 11/14/24 In Process Hyperglycemia Protoco 23:15 Insulin Regular, PHA 11/15/24 In Process Human 3ml (Humulin R 07:30 Enoxaparin Sodium 30 PHA 11/15/24 In Process Mg/0.3 Ml (Lovenox) 00:00 Current Medications Medications (Trade) Dose Ordered Sig/[place] Route PRN Reason Start Time Stop Time Status Last Admin Dose Admin Acetaminophen (TYLenol 325MG TAB) 650 mg Q6H PRN PO FEVER/MILD PAIN LEVEL 1-3 11/14/24 23:30 12/14/24 23:29 Acetaminophen (TYLenol 650MG SUPPOSITORY) 650 mg Q6H PRN RC FEVER / MILD PAIN 1-3 IF NPO 11/14/24 23:30 12/14/24 23:29 Acetaminophen/ Hydrocodone Bitart (NORco 5/325MG) 1 tab Q6H PRN PO PAIN LEVEL 4 TO 6 11/14/24 23:30 11/19/24 23:29 Acetylcysteine (MUComyst 20% 4ML) 600mg = 3ml [id number] IH 11/15/24 00:00 12/15/24 00:00 Albuterol (DUOneb) 1 UDVIAL ONCE ONCE IH 11/14/24 21:30 11/14/24 21:31 DC Albuterol (DUOneb) 1 UDVIAL [id number] IH 11/15/24 00:00 12/15/24 00:00 Albuterol Sulfate (Proventil 0.083% 2.5mg/3ml) 2.5 mg [id number] PRN IH SHORTNESS OF BREATH 11/14/24 23:30 12/14/24 23:29 Ascorbic Acid (Vitamin C 500mg Tab) 500 mg DAILY PO 11/15/24 09:00 12/15/24 08:59 Enoxaparin Sodium (Lovenox) 30 mg Q24H SQ 11/15/24 00:00 12/15/24 00:00 Famotidine (Pepcid 20mg Tab) 10 mg Q48H PO 11/15/24 00:00 12/15/24 00:00 Hydralazine HCl (APRESOLine 20MG INJ) 10 mg Q6H PRN IV SBP GREATER THAN 180 11/14/24 23:30 12/14/24 23:29 Insulin Human Regular (humuLIN R 100 UNIT/ML 3ML) INSULIN SLIDING SCAL... ACHS SQ 11/15/24 07:30 12/15/24 07:29 Labetalol HCl (TRANdate 20MG SYG) 10 mg Q2H PRN IV SBP GREATER THAN 180 11/14/24 23:30 12/14/24 23:29 Methylprednisolone Sodium Succinate (Solu-medROL 40MG) 40 mg ONCE ONCE IVP 11/14/24 21:30 11/14/24 21:31 DC Ondansetron HCl (zoFRAN 4MG INJ) 4 mg Q6H PRN IVP NAUSEA/VOMITING 11/14/24 23:30 12/14/24 23:29 Piperacillin Sod/ Tazobactam Sod (Zosyn 3.375gm+NS 50ml) 3.375 gm ONCE ONCE IV 11/14/24 21:30 11/14/24 21:31 DC Piperacillin Sod/ Tazobactam Sod (Zosyn 3.375gm+NS 50ml) 3.375 gm Q8H IV 11/15/24 05:30 11/25/24 05:29 Polyethylene Glycol (MIRalax 3350 17 GM POWD.PACK) 17 gm DAILY PO 11/15/24 09:00 12/15/24 08:59 Sodium Chloride 1,000 ml @ 125 mls/hr ONCE ONCE IV 11/14/24 21:30 11/15/24 05:29 Sodium Chloride (NS 250ml) 250 ml ONCE ONCE IVPB 11/14/24 21:30 11/14/24 21:31 DC Vancomycin HCl (Vancomycin 750mg) 750 mg ONCE ONCE IVPB 11/14/24 21:30 11/14/24 21:31 DC Vital Signs Date Time Temp Pulse Resp B/P (MAP) Pulse Ox O2 Delivery O2 Flow Rate FiO2 11/14/24 20:27 98.6 88 18 161/77 97 Room Air* 0 21 11/14/24 20:07 99.0 75 20 150/73 92 Room Air 0 I We will perform diagnostic labs, advanced imaging and administer medications according to the patient's complaint. Once the results are available, will review and personally interpreted the labs to rule out any acute life- threatening emergency the trach require immediate intervention and treatment. I will then re-evaluate the patient after treatment and diagnostic exams have return to determine whether the patient requires any further testing, can safely be discharged home or need further admission to hospital for additional treatment and evaluation. f Reviewed labs CBC is with a normal limits except for a hemoglobin of 11.9 BNP 7 is significant for a creatinine of 1.1. Troponins are negative brain natriuretic peptide is 139. TSH is 1.53 arterial blood gas showed a pCO2 of 63 In view of extensive pneumonia on the left side with underlying structural lung disease due to postinflammatory ARDS fibrosis, I gave her brought into gram- negative coverage and a dose of vancomycin Once MRSA screen and more culture data becomes available, antibiotics could be streamlined 10 50 p.m. patient was accepted by [facility]-level provider for [facility] for admission and further management Medical Decision Making MDM MDM: Differential diagnosis: Bronchitis, influenza, pneumonia, congestive heart failure Rationale: Tests considered and ordered secondary to shared decision making include: labs, ECG and radiology Previous outside records reviewed: Old ER visits. Risk of complication and/or morbidity or mortality of patient management: None Medications-Per medication reconciliation Need for hospitalization: Patient does meet criteria for hospitalization. Need for emergency major/minor surgery: No There are no social concerns with this patient. Prescription drug management Prescriptions will include symptomatic care Patient's prior external medical records from other ER visits were reviewed by me as indicated. Prior testing and results from previous visits were reviewed. Prior tests were taken into account with medical decision making and resource utilization, independent historian/historians were used to obtain complete medical history. I independently interpreted the test that were performed, results were reviewed by me and considered findings on radiology if ordered. Medical management and examination interpretation discussions were had by me with other qualified healthcare professionals as indicated for the patient's care. Problem List Problem List: (1) Pneumonia involving left lung (2) History of COVID-19 (3) Pulmonary fibrosis, postinflammatory DX & DISP Disposition: Inpatient Decision to Admit Time: 10:35 Departure Impression: Primary Impression: Pneumonia involving left lung Additional Impressions: History of COVID-19, Pulmonary fibrosis, postinflammatory Condition: Stable Additional Instructions: Patient was informed of all the diagnostic labs and procedures conducted in the emergency room today and demonstrated understanding of the results. I personally reviewed and interpreted all the diagnostic exams performed in the ER today. The patient will be admitted to the hospital for further treatment and evaluation. Disposition-admit to facility Condition-stable/guarded Course-uncertain at this time Pain status-decreased Assessment-exam unchanged Admission Certification- I certify that the patients status is appropriate and is based on my best clinical judgment and the patient's condition as documented in the medical records Referrals: LYUDMILA RIVAS (PCP) HUYEN BROUSSARD MD Nov 14, 2024 20:07
--- NOTE | 2024-11-14 20:09 | EKG ---
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
[2024-11-14 20:34] LABS: BASOPHILS # (AUTO) 0.05 K/uL (0.00-0.20); BASOPHILS % (AUTO) 0.6 % (0.0-5.0); EOSINOPHILS % (AUTO) 3.6 % (0.0-8.0); HEMATOCRIT 36.8 % (36-48); IMMATURE GRANULOCYTE ABSOLUTE 0.04 K/uL (0-1); LYMPHOCYTES # (AUTO) 1.8 K/uL (1.0-4.8); LYMPHOCYTES % (AUTO) 21.6 % (21.0-51.0); MEAN CORPUSCULAR HEMOGLOBIN 30.2 pg (27.0-33.0); MEAN CORPUSCULAR HGB CONC 32.3 g/dL (32.0-36.0); MEAN CORPUSCULAR VOLUME 93.4 fL (79-99); MONOCYTES # (AUTO) 0.6 K/uL (0.1-1.0); MONOCYTES % (AUTO) 7.3 % (3.0-13.0); NEUTROPHILS # (AUTO) 5.5 K/uL (1.8-7.7); NEUTROPHILS % (AUTO) 66.4 % (40.0-77.0); PLATELET COUNT (AUTO) 231 K/uL (130-400); RED BLOOD CELL COUNT(AUTO) 3.94 MIL/uL (4.00-5.50); RED CELL DISTRIBUTION WIDTH 13.2 % (11.0-15.5); WHITE BLOOD COUNT (AUTO) 8.2 K/uL (4.8-10.8)
[2024-11-14 20:44] LABS: CREATININE 1.1 mg/dL (0.5-1.0); POTASSIUM 4.6 mmol/L (3.5-5.1)
[2024-11-14 20:58] LABS: THYROID STIMULATING HORMONE 1.53 uIU/mL (0.36-3.74)
[2024-11-14 21:03] LABS: B-TYPE NATRIURETIC PEPTIDE 139 pg/mL (0-100)
[2024-11-14] MEDS: ZOSYN 3.375GM +NS 50ML IV ONE (21:30)
[2024-11-14] MEDS: IpraTROPium/alBUTERol SULFATE 3 ML SOLUTION IH ONE (21:30)
[2024-11-14 21:37] LABS: ABG BASE EXCESS -1.3 mmol/L (-2.0-3.0); ABG HCO3 23.1 mmol/L (21.0-28.0); ABG OXYGEN SATURATION 92.3 % (94.0-98.0); ABG PCO2 38 mmHg (32-45); ABG PH 7.402 (7.350-7.450); VENT MODE, BG ROOMAIR (ROOM AIR)
--- NOTE | 2024-11-14 21:39 | HMCIMG ---
PORTABLE CHEST RADIOGRAPH INDICATION: Dyspnea/SOB COMPARISON: 10/03/2024 CT chest FINDINGS: Heart size is normal. The pulmonary vascularity and karen appear normal. Generalized subpleural scarring identified, but increased coalescence within the left lower lung. No significant pleural effusion noted. No pneumothorax detected. IMPRESSION: Suspect evolving left lower lung pneumonia superimposed upon chronic lung scarring. Follow-up chest radiograph is advised in order to ensure resolution.
--- NOTE | 2024-11-14 23:29 | NUR ---
PT CARE ASSUMED AT THIS TIME
[2024-11-14] MEDS ORDERED: HYDROcodone/APAP 5/325 1 TAB TABLET PO PRN (23:30)
[2024-11-14] MEDS ORDERED: ALBUTEROL 0.083% 2.5 MG/3 ML INH IH PRN (23:30)
[2024-11-14] MEDS ORDERED: hydrALAZine 20MG/ML VIAL IV PRN (23:30)
[2024-11-14] MEDS ORDERED: acetaMINOPHEN 650 MG SUPPOSITORY RC PRN (23:30)
[2024-11-14] MEDS ORDERED: ondanSETRON 4MG INJ IVP PRN (23:30)
[2024-11-14] MEDS ORDERED: acetaMINOPHEN 325 MG TAB PO PRN (23:30)
[2024-11-14] MEDS ORDERED: LAbetaLOL 20MG SYG IV PRN (23:30)
[2024-11-14] MEDS: Solu-medROL 40MG VIAL IVP ONE (23:36)
[2024-11-14] MEDS: 0.9%NACL 1000ML 1,000 ML IV ONE (23:37)
[2024-11-14 23:46] VITALS: PULSE 64; RESP 20; O2SAT 96
[2024-11-14] MEDS: acetylCYSTeine 20% 200MG/ML 4ML VIAL IH SCH (23:46)
[2024-11-14] MEDS: IpraTROPium/alBUTERol SULFATE 3 ML SOLUTION IH SCH (23:46)
--- NOTE | 2024-11-14 23:48 | NUR ---
PROVIDER CHAD PAGED AT THIS TIME REGAURDING MEDICATIONS. PENDING CALL BACK.
[2024-11-14] MEDS ORDERED: PARO7.5C2 PO (23:56)
[2024-11-14] MEDS ORDERED: BUDE10.7 IH (23:56)
[2024-11-14] MEDS ORDERED: HYDR-3421 PO (23:56)
--- NOTE | 2024-11-14 23:56 | NUR ---
MEDICATION RECONCILIATION DONE AT THIS TIME
--- NOTE | 2024-11-15 00:12 | NUR ---
MEDICATION CLARIFICATION REGAURDING REPORTED ALLERGIES AND ORDERED ANTIBIOTICS ASKED AT THIS TIME. PER PROVIDER TAHA VANCOMYCIN AND ZOSYN IS TO BE ADMINISTERED AT THIS TIME.
--- NOTE | 2024-11-15 00:26 | NUR ---
PER PHARMACY MEDICATIONS AND REPORTED ALLERGIES HAVE BEEN VERIFIED AT THIS TIME.
[2024-11-15] MEDS: FAMOTIDINE 20MG TAB PO SCH (00:46)
[2024-11-15] MEDS: ENOXAPARIN SODIUM 30 MG/0.3 ML SQ SCH (00:47)
[2024-11-15] MEDS: VANCOMYCIN 750MG VIAL IVPB ONE (00:48)
[2024-11-15] MEDS: 0.9% NACL 250ML IVPB ONE (00:48)
[2024-11-15] MEDS: ZOSYN 3.375GM +NS 50ML IV SCH (05:42)
--- NOTE | 2024-11-15 07:12 | NUR ---
REPORT GIVEN TO ADAMS Gan RN AT THIS TIME
[2024-11-15 07:25] VITALS: PULSE 66; RESP 20; O2SAT 96
[2024-11-15 07:29] LABS: BASOPHILS # (AUTO) 0.03 K/uL (0.00-0.20); BASOPHILS % (AUTO) 0.5 % (0.0-5.0); HEMATOCRIT 33.5 % (36-48); IMMATURE GRANULOCYTE ABSOLUTE 0.03 K/uL (0-1); LYMPHOCYTES # (AUTO) 0.6 K/uL (1.0-4.8); MEAN CORPUSCULAR HEMOGLOBIN 30.5 pg (27.0-33.0); MEAN CORPUSCULAR HGB CONC 32.8 g/dL (32.0-36.0); MEAN CORPUSCULAR VOLUME 92.8 fL (79-99); MONOCYTES # (AUTO) 0.1 K/uL (0.1-1.0); MONOCYTES % (AUTO) 0.8 % (3.0-13.0); NEUTROPHILS # (AUTO) 5.6 K/uL (1.8-7.7); NEUTROPHILS % (AUTO) 88.2 % (40.0-77.0); PLATELET COUNT (AUTO) 197 K/uL (130-400); RED BLOOD CELL COUNT(AUTO) 3.61 MIL/uL (4.00-5.50); RED CELL DISTRIBUTION WIDTH 13.1 % (11.0-15.5); WHITE BLOOD COUNT (AUTO) 6.4 K/uL (4.8-10.8)
[2024-11-15] MEDS: INSULIN humuLIN R 100 UNIT/ML 3ML SQ SCH (07:30)
[2024-11-15 07:42] LABS: PHOSPHORUS 3.5 mg/dL (2.5-4.9); POTASSIUM 4.4 mmol/L (3.5-5.1)
[2024-11-15] MEDS: polyETHYLene GLYCol 3350 17 GM POWD.PACK PO SCH (09:40)
[2024-11-15] MEDS: ASCORBIC ACID 500 MG TAB PO SCH (09:40)
--- NOTE | 2024-11-15 11:33 | NUR ---
DCP Patient states lives with Ju Oliver, Daughter [phone] and son in law. 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 States needs some help with ADL's. States has a cane and a shower chair; denies other medical devices. Requests a bedside commode; referred to PCP for prescription. Denies home health services and dialysis. [facility] provider comes to the home for 21 hours per week. PCP - [facility] Kari Pierre. Upon discharge, states Ju Oliver, Daughter [phone]/Edgar Melchor, Son [phone] Addendum: 11/15/24 at 1138 by RONALD JANE RN CM Amended: Links added.
[2024-11-15 11:42] VITALS: PULSE 75; RESP 20
--- NOTE | 2024-11-15 15:45 | HP ---
[facility] HISTORY & PHYSICAL Date Patient Seen: Nov 15, 2024 Time of Visit: 15:45 Supervising Physician: [Dr. Janes Rao Primary Care Physician: Dr. Lencho Bar Outpatient Specialists: [ ] Inpatient Consults: [ ] PROBLEM LIST: Community-acquired pneumonia Pulmonary fibrosis History of COVID in 2019, 2021 Chronic obstructive pulmonary disease Obstructive sleep apnea Depression HPI: Patient was an 83-year-old female with a past medical history significant for Chronic obstructive pulmonary disease, obstructive sleep apnea, pulmonary fibrosis, as well as to diagnoses of COVID-19 in 2019 as well as 2021, who presented in his admitted today for episodes of shortness of breath, patient states she has productive cough, no fevers to report. At the time of evaluation patient was currently on 2 L nasal cannula, currently on Zosyn antibiotic and receiving nebulizer treatments. White count is 6.4 on the latest study, hemoglobin stable at 11.0. Creatinine is 1.0. Procalcitonin is within normal limits. Patient denies any other symptoms at this time. Patient did not use oxygen at home, however due to her fibrosis she would likely benefit from home O2. Pending 6 minute walk and eval for possible home O2 delivery at which point she will be cleared for discharge on oral antibiotics. Plan Continue antibiotics Continue supplemental O2 Continue nebulizer treatments Follow morning labs 6 minute walk for home O2 evaluation PAST MEDICAL HX: see above PAST SURGICAL HX: noncontributory SOCIAL HISTORY: No tobacco, ETOH, or illicit drug use Coded Allergies: amoxicillin (Unverified Allergy, Unknown, 11/14/24) azithromycin (Unverified Allergy, Unknown, 11/14/24) REVIEW OF SYSTEMS: 12 point ROS reviewed with patient. Pertinent positives mentioned above. Otherwise negative. PHYSICAL EXAM: GENERAL: alert, weak, awake oriented x 3 HEENT: EOMI, Sclera non icteric, moist mucosa NECK: Supple, no JVD, trachea midline LUNGS: Clear breath sounds bilaterally. No wheezes HEART: Regular rate and rhythm. Normal S1 and S2, without murmurs ABD: Abdomen soft, nontender. Bowel sounds present EXT: No clubbing cyanosis or edema NEURO: Alert and oriented to person, follows commands Vital Signs (last 8hr) Date Time Temp Pulse Resp B/P (MAP) Pulse Ox O2 Delivery O2 Flow Rate FiO2 11/15/24 12:00 97.9 64 22 106/54 96 Nasal Cannula* 2 28 11/15/24 11:42 75 20 11/15/24 08:00 97.5 69 18 130/64 97 Nasal Cannula* 2 28 LABS: Hematology Labs: Test 11/15/24 07:04 Range/Units White Blood Count 6.4 4.8-10.8 K/uL Red Blood Count 3.61 L 4.00-5.50 MIL/uL Hemoglobin 11.0 L 12.0-16.0 g/dL Hematocrit 33.5 L 36-48 % Mean Corpuscular Volume 92.8 79-99 fL Mean Corpuscular Hemoglobin 30.5 27.0-33.0 pg Mean Corpuscular Hemoglobin Concent 32.8 32.0-36.0 g/dL Red Cell Distribution Width 13.1 11.0-15.5 % Platelet Count 197 130-400 K/uL Mean Platelet Volume 10.7 H 7.5-10.5 fL Immature Granulocyte % (Auto) 0.5 0-1 % Neutrophils (%) (Auto) 88.2 H 40.0-77.0 % Lymphocytes (%) (Auto) 10.0 L 21.0-51.0 % Monocytes (%) (Auto) 0.8 L 3.0-13.0 % Eosinophils (%) (Auto) 0.0 0.0-8.0 % Basophils (%) (Auto) 0.5 0.0-5.0 % Neutrophils # (Auto) 5.6 1.8-7.7 K/uL Lymphocytes # (Auto) 0.6 L 1.0-4.8 K/uL Monocytes # (Auto) 0.1 0.1-1.0 K/uL Eosinophils # (Auto) 0.00 0.00-0.70 K/uL Basophils # (Auto) 0.03 0.00-0.20 K/uL Absolute Immature Granulocyte (auto 0.03 0-1 K/uL Nucleated Red Blood Cells 0.0 0.0-0.19 % White Cell Morphology Comment See comments Chemistry Labs: Test 11/15/24 11:49 11/15/24 07:04 11/14/24 21:41 11/14/24 20:24 Range/Units Whole Blood Glucose 135 H 70-110 MG/DL Sodium Level 141 136-145 mmol/L Potassium Level 4.4 3.5-5.1 mmol/L Chloride Level 109 101-111 mmol/L Carbon Dioxide Level 26 21-32 mmol/L Blood Urea Nitrogen 14 7-18 mg/dL Creatinine 1.0 0.5-1.0 mg/dL Glomerular Filtration Rate Calc 56 >90 mL/min Random Glucose 158 #H 70-105 mg/dL Total Calcium 8.3 L 8.5-10.1 mg/dL Phosphorus Level 3.5 2.5-4.9 mg/dL Magnesium Level 2.00 1.80-2.40 mg/dL Procalcitonin < 0.05 L 0.05-0.5 ng/mL Lactic Acid Level 1.1 0.8-2.5 mmol/L Total Creatine Kinase 70 21-232 U/L Troponin I High Sensitivity 7.2 4-50 ng/L B-Type Natriuretic Peptide 139 H 0-100 pg/mL Thyroid Stimulating Hormone (TSH) 1.53 # 0.36-3.74 uIU/mL DIAGNOSTICS / RADIOLOGY RESULTS: [ ] PLAN NEURO: Minimize central acting medications as possible. Maintain fall precautions, adequate lighting during the day PULMONARY: Supplemental 02 as needed. Maintain aspiration precautions at all times CARDIOVASCULAR: Follow hemodynamics. Vital signs per facility protocol GI & NUTRITION: Continue with nutritional support. Continue stool softeners and laxatives as needed. KIDNEYS & ELECTROLYTES: Strict monitoring of intake, output and overall fluid balance. Avoid nephrotoxic medications to the extent possible. Medications to be dosed according to renal function. Monitor electrolytes and replace as needed ENDOCRINE: Maintain blood glucose between 100-180 at all times. Hypoglycemia protocol in place INFECTIOUS DISEASE: Trend temperature, WBC and procalcitonin level Follow cultures, deescalate antibiotics as soon as possible. Panculture if new onset fever ONCOLOGY/HEMATOLOGY/COAGULATION: Monitor for s/s of bleeding Monitor hemoglobin, coagulation studies as needed SKIN: Pressure ulcer prevention per facility protocol Specialty mattress ORTHO/REHAB: Continue PT/OT Prophylaxis: Continue GI and DVT prophylaxis Code Status: Full Resuscitation Disposition: TBD Other: Total patient care time exceeds 35 minutes excluding all procedures. KELSIE CHANG Nov 15, 2024 15:45
[2024-11-15 17:30] VITALS: PULSE 76; PULSE 88; PULSE 90; RESP 18; RESP 20; RESP 22; O2SAT 87; O2SAT 94; O2SAT 98
[2024-11-15 18:43] VITALS: PULSE 67; RESP 18; O2SAT 96
[2024-11-15 18:44] VITALS: PULSE 67; RESP 20
[2024-11-15 23:36] VITALS: PULSE 61; RESP 18
[2024-11-16] VITALS (8 sets, daily range): BP systolic 130; BP diastolic 74; PULSE 71–84; RESP 16–20; TEMP 98.1; O2SAT 93–100
--- NOTE | 2024-11-16 07:00 | NUR ---
REPORT RECEIVED FROM URSZULA ARAGON
[2024-11-16 07:25] LABS: HEMATOCRIT 32.9 % (36-48); MEAN CORPUSCULAR HEMOGLOBIN 30.1 pg (27.0-33.0); MEAN CORPUSCULAR HGB CONC 32.2 g/dL (32.0-36.0); MEAN CORPUSCULAR VOLUME 93.5 fL (79-99); RED BLOOD CELL COUNT(AUTO) 3.52 MIL/uL (4.00-5.50); RED CELL DISTRIBUTION WIDTH 13.5 % (11.0-15.5); WHITE BLOOD COUNT (AUTO) 9.4 K/uL (4.8-10.8)
[2024-11-16 07:43] LABS: CREATININE 1.1 mg/dL (0.5-1.0); POTASSIUM 4.1 mmol/L (3.5-5.1)
--- NOTE | 2024-11-16 08:15 | NUR ---
ASSESSMENT: PT FOUND IN SUPINE POSITION AWAKE AND ALERT. NO ACUTE DISTRESS NOTE AT THIS TIME. NO USE OF ACCESSORY MUSCLES NOR STERNAL RETRACTIONS CARDIO/PULMONARY: PT CURRENTLY DENIES ANY CP. S1S2 AUSCULTATED APICALLY. 2+ PULSES TO BILATERAL RADIAL/DORSALIS PEDAL SITES. NO EDEMA NOTED TO LE'S. CAP REFILL LESS <3 SECONDS. LSCTA TO UPPER LOBES BILATERALLY BUT DIMINISHED. LS TO BASES RALES/RONCHI INSPIRATORY AND EXPIRATORY W/WHEEZES, ESPECIALLY TO HER LLL. PT WAS ENCOURAGED TO DO COUGH AND DEEP BREATHING EXERCISES. PT WAS SHOWN AND SHE VERBALIZED UNDERSTANDING. NO CYANOSIS NOTED TO NAIL BEDS ON HER HANDS. PT CURRENTLY ON 1L VIA N/C AND HER OXYGEN SATURATION IS 96-99% NEURO: PT IS ABLE TO FOLLOW ALL SIMPLE/COMPLEX COMMANDS. [employer] IS 15. PT IS NEUROLOGICALLY INTACT. PT ASKS PERTINENAT HEALTH QUESTIONS WELL HER SPOUSE. GI/: BOTH WNL. DENIES ANY ISSUES/CONCERNS. MUSCULOSKELETAL/INTEGUMENTARY: PT HAS FULL ROM TO ALL EXTREMITIES. PT STATES SHE IS ABLE TO AMBULATE TO RESTROOM W/OUT ANY ISSUES/.CONCERNS. SKIN IS DRY AND INTACT. NO SKIN BREAKDOWN NOTED NOR VERBALIZED BY PT.
--- NOTE | 2024-11-16 14:37 | NUR ---
DR AYALA WAS JUST IN TO SEE THE PT.
--- NOTE | 2024-11-16 15:50 | NUR ---
PT OOB TO BR W/NO ASSIST. AMBULATE WELL. DENIES ANY ISSUES/CONCERNS AT THIS TIME
--- NOTE | 2024-11-16 16:04 | NUR ---
PER CASE MANAGEMENT, OXYGEN IS SET UP TO BE DELIVERED TODAY AND IF NOT TOMORROW MORNING, THEN THE MD WOULD D/C HER TO HOME
--- NOTE | 2024-11-16 16:14 | NUR ---
INCENTIVE SPIROMETER: PEDRO LUIS HILARIO CURRENTLY DOING TEACHING FOR INCENTIVE SPIROMETER FOR C/DB EXERCISES. I DID GO OVER THAT WITH HER EARLIER THIS AM DURING MY ASSESSMENT, BUT DID NOT THE IS
--- NOTE | 2024-11-16 16:17 | NUR ---
[facility] Follow-up Per Misha, with [facility], referral has been received and will be worked on. Misha aware plan is to discharge once oxygen has been delivered. This CM updated patient and made patient aware that referral for home oxygen has been submitted and plan is to discharge once delivered. Patient in agreement with plan. MUSHTAQ/CL and packet sent to [facility] placed in patient's chart in ER.
--- NOTE | 2024-11-16 16:31 | NUR ---
KELSIE CHRISTINA WAS JUST IN TO SEE THE PT
--- NOTE | 2024-11-16 19:15 | NUR ---
ASSUMED CARE OF THE PATIENT, AAOX4, NO DISTRESS NOTED, REMAINS IN 3L O2 NC, PENDING ROOM ASSIGNMENT UPSTAIRS
--- NOTE | 2024-11-16 19:22 | NUR ---
REPORT ENDORSED TO YANET ARAGON
--- NOTE | 2024-11-16 20:49 | PN ---
[facility] PROGRESS NOTE Date Patient Seen: Nov 16, 2024 Time of Visit: 20:46 Supervising Physician: Dr. Janes Rao Primary Care Physician: Dr. Lencho Bar Outpatient Specialists: [ ] Inpatient Consults: [ ] PROBLEM LIST: Community-acquired pneumonia Pulmonary fibrosis History of COVID in 2021 Chronic obstructive pulmonary disease Obstructive sleep apnea Depression INTERVAL HISTORY: Evaluated at bedside with family present, patient remains hypoxic on 2 L nasal cannula at this time. Patient failed her 6 minute walk yesterday, qualifying her for home O2. We are currently pending the delivery of home oxygen for her to be discharged home, until then she continues on Zosyn IV. She will be discharged on Augmentin with a Medrol Dosepak as well as follow-up with Dr. Mayorga at [facility] for further evaluation and management of her fibrosis. Patient's laboratory studies are unremarkable at this time, current treatment plan was discussed with the patient she is on agreement at this time. Pending updates from case management regarding the delivery of home oxygen for discharge. REVIEW OF SYSTEMS: 12 point ROS reviewed with patient. Pertinent positives mentioned above. Otherwise negative. PHYSICAL EXAM: GENERAL: alert, weak, awake oriented x 3 HEENT: EOMI, Sclera non icteric, moist mucosa NECK: Supple, no JVD, trachea midline LUNGS: Clear breath sounds bilaterally. No wheezes HEART: Regular rate and rhythm. Normal S1 and S2, without murmurs ABD: Abdomen soft, nontender. Bowel sounds present EXT: No clubbing cyanosis or edema NEURO: Alert and oriented to person, follows commands Vital Signs (last 8hr) Date Time Temp Pulse Resp B/P (MAP) Pulse Ox O2 Delivery O2 Flow Rate FiO2 11/16/24 19:03 79 20 N/Cannula Low lpm 2.0 11/16/24 18:59 80 20 11/16/24 16:00 97.9 77 17 132/71 97 Nasal Cannula* 1 24 LABS: Hematology Labs: Test 11/16/24 07:14 11/15/24 07:04 Range/Units White Blood Count 9.4 4.8-10.8 K/uL Red Blood Count 3.52 L 4.00-5.50 MIL/uL Hemoglobin 10.6 L 12.0-16.0 g/dL Hematocrit 32.9 L 36-48 % Mean Corpuscular Volume 93.5 79-99 fL Mean Corpuscular Hemoglobin 30.1 27.0-33.0 pg Mean Corpuscular Hemoglobin Concent 32.2 32.0-36.0 g/dL Red Cell Distribution Width 13.5 11.0-15.5 % Platelet Count 206 130-400 K/uL Mean Platelet Volume 10.4 7.5-10.5 fL Nucleated Red Blood Cells 0.0 0.0-0.19 % Immature Granulocyte % (Auto) 0.5 0-1 % Neutrophils (%) (Auto) 88.2 H 40.0-77.0 % Lymphocytes (%) (Auto) 10.0 L 21.0-51.0 % Monocytes (%) (Auto) 0.8 L 3.0-13.0 % Eosinophils (%) (Auto) 0.0 0.0-8.0 % Basophils (%) (Auto) 0.5 0.0-5.0 % Neutrophils # (Auto) 5.6 1.8-7.7 K/uL Lymphocytes # (Auto) 0.6 L 1.0-4.8 K/uL Monocytes # (Auto) 0.1 0.1-1.0 K/uL Eosinophils # (Auto) 0.00 0.00-0.70 K/uL Basophils # (Auto) 0.03 0.00-0.20 K/uL Absolute Immature Granulocyte (auto 0.03 0-1 K/uL White Cell Morphology Comment See comments Chemistry Labs: Test 11/16/24 17:02 11/16/24 07:14 11/15/24 07:04 11/14/24 21:41 Range/Units Whole Blood Glucose 90 70-110 MG/DL Sodium Level 144 136-145 mmol/L Potassium Level 4.1 3.5-5.1 mmol/L Chloride Level 108 101-111 mmol/L Carbon Dioxide Level 32 21-32 mmol/L Blood Urea Nitrogen 19 H 7-18 mg/dL Creatinine 1.1 H 0.5-1.0 mg/dL Glomerular Filtration Rate Calc 50 >90 mL/min Random Glucose 98 70-105 mg/dL Total Calcium 8.6 8.5-10.1 mg/dL Phosphorus Level 3.5 2.5-4.9 mg/dL Magnesium Level 2.00 1.80-2.40 mg/dL Procalcitonin < 0.05 L 0.05-0.5 ng/mL Lactic Acid Level 1.1 0.8-2.5 mmol/L DIAGNOSTICS / RADIOLOGY RESULTS: [ ] PLAN NEURO: Minimize central acting medications as possible. Maintain fall precautions, adequate lighting during the day PULMONARY: Supplemental 02 as needed. Maintain aspiration precautions at all times CARDIOVASCULAR: Follow hemodynamics. Vital signs per facility protocol GI & NUTRITION: Continue with nutritional support. Continue stool softeners and laxatives as needed. KIDNEYS & ELECTROLYTES: Strict monitoring of intake, output and overall fluid balance. Avoid nephrotoxic medications to the extent possible. Medications to be dosed according to renal function. Monitor electrolytes and replace as needed ENDOCRINE: Maintain blood glucose between 100-180 at all times. Hypoglycemia protocol in place INFECTIOUS DISEASE: Trend temperature, WBC and procalcitonin level Follow cultures, deescalate antibiotics as soon as possible. Panculture if new onset fever ONCOLOGY/HEMATOLOGY/COAGULATION: Monitor for s/s of bleeding Monitor hemoglobin, coagulation studies as needed SKIN: Pressure ulcer prevention per facility protocol Specialty mattress ORTHO/REHAB: Continue PT/OT Prophylaxis: Continue GI and DVT prophylaxis Code Status: Full Resuscitation Disposition: TBD Other: Total patient care time exceeds 35 minutes excluding all procedures. KELSIE CHANG Nov 16, 2024 20:49
--- NOTE | 2024-11-16 21:21 | NUR ---
REPORT GIVEN TO TEOFILO ARAGON, PATIENT GOING TO ROOM 410
[2024-11-17] VITALS (8 sets, daily range): BP systolic 126–140; BP diastolic 63–73; PULSE 67–83; RESP 16–20; TEMP 97.7–98.2; O2SAT 95–96
[2024-11-17 06:03] LABS: HEMATOCRIT 31.6 % (36-48); MEAN CORPUSCULAR HGB CONC 32.3 g/dL (32.0-36.0); MEAN CORPUSCULAR VOLUME 92.9 fL (79-99); RED BLOOD CELL COUNT(AUTO) 3.4 MIL/uL (4.00-5.50); RED CELL DISTRIBUTION WIDTH 13.4 % (11.0-15.5); WHITE BLOOD COUNT (AUTO) 8.2 K/uL (4.8-10.8)
[2024-11-17 06:19] LABS: CREATININE 0.9 mg/dL (0.5-1.0); POTASSIUM 3.6 mmol/L (3.5-5.1)
--- NOTE | 2024-11-17 11:30 | NUR ---
CM NOTE: APRIA APPROVAL CM SPOKE TO AYESHA Perez/REX, PT IS APPROVED. [facility] CURRENTLY IN [place] DELIVERY O2, WILL DELIVER PT'S HOME O2 THIS AFTERNOON, BETWEEN 5-7PM. PT SAFE TO DC ONCE PORTABLE O2 IN PT'S ROOM. PRIMARY NURSE CAROL YI. KELSIE CHRISTINA UPDATED. DC ORDER IN PLACE. CM TO CONTINUE TO FOLLOW UP.
--- NOTE | 2024-11-17 12:53 | DS ---
[facility] DISCHARGE SUMMARY Date Patient Seen: Nov 17, 2024 Time of Visit: 12:52 Supervising Physician: Dr. Janes Rao Primary Care Physician: Dr. Lencho Bar Outpatient Specialists: [ ] Inpatient Consults: [ ] HOSPITAL COURSE: HPI (per admitting provider) Patient was an 83-year-old female with a past medical history significant for Chronic obstructive pulmonary disease, obstructive sleep apnea, pulmonary fibrosis, as well as to diagnoses of COVID-19 in 2019 as well as 2021, who presented in his admitted today for episodes of shortness of breath, patient states she has productive cough, no fevers to report. At the time of evaluation patient was currently on 2 L nasal cannula, currently on Zosyn antibiotic and receiving nebulizer treatments. White count is 6.4 on the latest study, hemoglobin stable at 11.0. Creatinine is 1.0. Procalcitonin is within normal limits. Patient denies any other symptoms at this time. Patient did not use oxygen at home, however due to her fibrosis she would likely benefit from home O2. Pending 6 minute walk and eval for possible home O2 delivery at which point she will be cleared for discharge on oral antibiotics. The patient was treated for the following problems: ACTIVE PROBLEM LIST FOR THE HOSPITALIZATION: Community-acquired pneumonia, treated, patient discharged with outpatient antibiotics Pulmonary fibrosis , patient received home oxygen on this visit CHRONIC PROBLEMS: continue previous management per PCP unless otherwise indicated History of COVID in 2019, 2021 Chronic obstructive pulmonary disease Obstructive sleep apnea Depression SYSTEMS MGR FINDINGS/RECOMMENDATIONS: [ ] PROCEDURES: as mentioned above DISCHARGE MEDICATIONS: Pt hemodynamically stable and afebrile at time of discharge. PCP notified of patients admission, hospital course and discharge. PHYSICAL EXAM: GENERAL: alert, weak, awake oriented x 3 HEENT: EOMI, Sclera non icteric, moist mucosa NECK: Supple, no JVD, trachea midline LUNGS: Clear breath sounds bilaterally. No wheezes HEART: Regular rate and rhythm. Normal S1 and S2, without murmurs ABD: Abdomen soft, nontender. Bowel sounds present EXT: No clubbing cyanosis or edema NEURO: Alert and oriented to person, follows commands FOLLOW-UP: Follow-up with PCP in 2-3 days RECOMMENDATIONS: See Discharge Instructions This case was seen and discussed with my supervising physician. More than 30 minutes spent on discharge process, including evaluation of the patient, discussion with nursing staff, medication reconciliation and follow-up appointments KELSIE CHANG Nov 17, 2024 12:52
[2024-11-17] MEDS ORDERED: CEPH500C2 PO (13:38)
[2024-11-17] MEDS ORDERED: METH4TAB3 PO (13:38)
--- NOTE | 2024-11-17 15:30 | NUR ---
Discharge PT sitting in bed w/ eyes open 0 s/s of pain or discomfort noted A&O x4. Discharge instructions given to PT; PT verbally acknowledged understanding PT has 0 questions or concerns @ this time. PT waiting in room For delivery of home O2.
--- NOTE | 2024-11-17 17:24 | NUR ---
DISCHARGE pT escorted out of hospital to POV and family via wheelchair by LEGAL RECEPTIONIST
== END 2024-11-17 17:20 | disposition home or self-care (01) | DRG 190 ==
LOC: EDH 19:59 → OBSVTOIN 20:00 → EDHIP 20:00 → 4BH 11-16 21:02
PROVIDERS: ADMIT Internal Medicine; ATTEND Internal Medicine
DX: J44.0 Chronic obstructive pulmonary disease with (acute) lower respiratory infection (principal); J18.9 Pneumonia, unspecified organism; G47.33 Obstructive sleep apnea (adult) (pediatric); R09.02 Hypoxemia; F32.A Depression, unspecified; J84.10 Pulmonary fibrosis, unspecified; Z86.16 Personal history of COVID-19; Z79.899 Other long term (current) drug therapy; Z99.81 Dependence on supplemental oxygen
CPT/HCPCS: 36415; 36600; 71045; 80048; 82550; 82803; 82948; 83605; 83735; 83880; 84100; 84145; 84443; 84484; 85025; 85027; 87040; 93005; 94640; 94664; 94760; G0378; J1650; J2543; J2919; J7030; J7050; J3370